=== PATIENT | male | born 1985 | race Caucasian/White ===

== ENCOUNTER → 2024-05-05 19:43 | Outpatient (REF) | payer BC, SELFPAY | LOC: MRI 3T 19:43 | PROVIDERS: ATTENDING PHYSICIAN Nurse Practitioner Family | DX: G35 Multiple sclerosis (principal) | CPT/HCPCS: 70553; 72156; A9575 ==

== ENCOUNTER → 2024-05-06 19:39 | Outpatient (REF) | payer BC, SELFPAY | LOC: MRI 3T 19:39 | PROVIDERS: ATTENDING PHYSICIAN Nurse Practitioner Family | DX: G35 Multiple sclerosis (principal) | CPT/HCPCS: 72157; A9575 ==

== ENCOUNTER → 2025-05-12 15:09 | Outpatient (REF) | payer BC, SELFPAY | LOC: MRI 3T 15:09 | PROVIDERS: ATTENDING PHYSICIAN Nurse Practitioner Family; FAMILY PHYSICIAN Physician Assistant Medical | DX: G35 Multiple sclerosis (principal) | CPT/HCPCS: 70553; 72156; A9575 ==

== ENCOUNTER → 2025-05-13 15:44 | Outpatient (REF) | payer BC, SELFPAY | LOC: MRI 3T 15:44 | PROVIDERS: ATTENDING PHYSICIAN Nurse Practitioner Family; FAMILY PHYSICIAN Physician Assistant Medical | DX: G35 Multiple sclerosis (principal) | CPT/HCPCS: 72157; A9585 ==

== ENCOUNTER → 2025-09-23 10:55 | Outpatient (REF) | payer BC, SELFPAY | LOC: MRI 3T 10:55 | PROVIDERS: ATTENDING PHYSICIAN Nurse Practitioner Family; FAMILY PHYSICIAN Surgery | DX: G35.D Multiple sclerosis, unspecified (principal); R29.898 Other symptoms and signs involving the musculoskeletal system | CPT/HCPCS: 72100; 72156; A9575 ==